=== PATIENT | female | born 1945 | race African-American/Black ===

== ENCOUNTER 2017-03-20 04:52 | Emergency (ER) | payer BC, OTHER ==
[~2017-03-20] VITALS: Ht 165.1 cm; Wt 70.0 kg
[~2017-03-20 04:52] MED LIST: ASPI-1160 PO; LEVE500T19 PO
[2017-03-20 06:33] LABS: BASOPHILS % 1.2 % (0.0-2.0); EOSINOPHILS % 12.3 % (0.0-5.0); HEMATOCRIT. 34.5 % (36.0-48.0); HEMOGLOBIN. 11.8 g/dL (12.0-16.0); LYMPHOCYTES % 29.2 % (20.0-50.0); MEAN CORPUSCULAR HEMOGLOBIN 30.6 pg (28.0-32.0); MEAN CORPUSCULAR VOLUME 89.7 fL (81.0-99.0); MONOCYTES % 7.5 % (2.0-8.0); NEUTROPHILS % 49.8 % (40.0-76.0); PLATELET 342 x1000/uL (130-400); RED BLOOD CELL COUNT 3.84 mill/uL (4.2-5.4); RED CELL DISTRIBUTION WIDTH 13.5 % (11.6-14.6)
[2017-03-20 06:38] LABS: CHLORIDE 106 mEq/L (98-107)
[2017-03-20 06:41] LABS: INR 1.1; PROTHROMBIN TIME 11.6 sec
[2017-03-20 06:46] LABS: CARBON DIOXIDE 24 mEq/L (21-32)
[2017-03-20] MEDS ORDERED: NA PHOS,M-B/NA PHOS,DI-BA ENEMA 118ML PR ONE (07:00)
[2017-03-20 07:10] LABS: CLARITY URINE CLEAR (CLEAR); COLOR URINE YELLOW (YELLOW); GLUCOSE URINE NEGATIVE (NEGATIVE); KETONES URINE NEGATIVE (NEGATIVE); LEUKOCYTE ESTERASE URINE NEGATIVE (NEGATIVE); NITRITE URINE NEGATIVE (NEGATIVE); OCCULT BLOOD URINE NEGATIVE (NEGATIVE); PH URINE 7.5 (4.5-8.0); PROTEIN URINE NEGATIVE (NEGATIVE); SPECIFIC GRAVITY URINE 1.014 (1.005-1.030)
[2017-03-20] MEDS ORDERED: LACTULOSE 20G/30ML UDC PO ONE (07:15)
[2017-03-20 10:50] VITALS: BP 121/68
== END 2017-03-20 10:52 | disposition home or self-care (01) ==
LOC: ER 05:09
DX: R10.33 Periumbilical pain (principal); K56.41 Fecal impaction; E11.9 Type 2 diabetes mellitus without complications; I10 Essential (primary) hypertension; Z86.73 Personal history of transient ischemic attack (TIA), and cerebral infarction without residual deficits; Z98.890 Other specified postprocedural states
CPT/HCPCS: 36415; 74176; 80053; 81003; 82962; 83690; 85025; 85610; 99285

== ENCOUNTER 2017-09-05 18:48 | Emergency (ER) | payer BC, OTHER ==
[~2017-09-05] VITALS: Ht 162.6 cm; Wt 60.0 kg
[2017-09-05] MEDS ORDERED: ONDANSETRON HCL 4MG/2ML VIAL IV STA (19:17)
[2017-09-05] MEDS ORDERED: SODIUM CHLORIDE 0.9% 1,000 ML IV ONE (19:17)
[2017-09-05] MEDS ORDERED: KETOROLAC 30MG/ML VIAL IV STA (19:17)
[2017-09-05 20:21] LABS: BASOPHILS % 1.4 % (0.0-2.0); EOSINOPHILS % 8.1 % (0.0-5.0); HEMATOCRIT. 32.1 % (36.0-48.0); HEMOGLOBIN. 11.1 g/dL (12.0-16.0); LYMPHOCYTES % 32.7 % (20.0-50.0); MEAN CORPUSCULAR HEMOGLOBIN 31.9 pg (28.0-32.0); MEAN PLATELET VOLUME 8.2 fl (7.4-10.4); NEUTROPHILS % 48.8 % (40.0-76.0); PLATELET 347 x1000/uL (130-400); RED BLOOD CELL COUNT 3.49 mill/uL (4.2-5.4); RED CELL DISTRIBUTION WIDTH 13.6 % (11.6-14.6)
[2017-09-05 20:22] LABS: INR 1.1; PROTHROMBIN TIME 11.6 sec (9.4-11.6)
[2017-09-05 20:31] LABS: CARBON DIOXIDE 27 mEq/L (21-32); CHLORIDE 109 mEq/L (98-107)
[2017-09-05 20:32] VITALS: BP 133/68
[2017-09-05 22:37] LABS: CLARITY URINE TURBID (CLEAR); COLOR URINE YELLOW (YELLOW); KETONES URINE NEGATIVE (NEGATIVE); LEUKOCYTE ESTERASE URINE 3+ (NEGATIVE); NITRITE URINE NEGATIVE (NEGATIVE); OCCULT BLOOD URINE 1+ (NEGATIVE); PROTEIN URINE NEGATIVE (NEGATIVE); SPECIFIC GRAVITY URINE 1.009 (1.005-1.030)
== END 2017-09-05 22:58 | disposition home or self-care (01) ==
LOC: ER 19:07
DX: K59.09 Other constipation (principal); N30.00 Acute cystitis without hematuria; I10 Essential (primary) hypertension; E11.9 Type 2 diabetes mellitus without complications; Z86.73 Personal history of transient ischemic attack (TIA), and cerebral infarction without residual deficits; Z79.82 Long term (current) use of aspirin
CPT/HCPCS: 36415; 74176; 80053; 81001; 85025; 85610; 96361; 96374; 96375; 99285; J1885; J2405; J7030

== ENCOUNTER 2019-08-28 02:06 | Emergency (ER) | payer MEDICAID, OTHER ==
[~2019-08-28] VITALS: Ht 165.1 cm; Wt 75.0 kg
[~2019-08-28 02:06] MED LIST changes: +ATOR20TA65 PO; +CLOP75TA33 PO; +FOLI0.8C PO; +PHEN100C12 PO
[2019-08-28] MEDS ORDERED: SODIUM CHLORIDE 0.9% 1,000 ML IV ONE (02:48)
[2019-08-28] MEDS ORDERED: LORAZEPAM 2MG/ML CPJ IV ONE (03:00)
[2019-08-28 03:13] LABS: BASOPHILS % 0.3 % (0.0-2.0); EOSINOPHILS % 7.2 % (0.0-5.0); HEMATOCRIT. 34.7 % (36.0-48.0); HEMOGLOBIN. 11.6 g/dL (12.0-16.0); LYMPHOCYTES % 37.8 % (20.0-50.0); MEAN CORPUSCULAR VOLUME 95.3 fL (81.0-99.0); MEAN PLATELET VOLUME 9.2 fl (7.4-10.4); MONOCYTES % 11.5 % (2.0-8.0); NEUTROPHILS % 43.2 % (40.0-76.0); PLATELET 263 x1000/uL (130-400); RED BLOOD CELL COUNT 3.64 mill/uL (4.2-5.4); RED CELL DISTRIBUTION WIDTH 13.4 % (11.6-14.6)
[2019-08-28 03:21] LABS: CHLORIDE 113 mEq/L (98-107)
[2019-08-28 03:25] LABS: ETHANOL BLOOD < 10 mg/dL
[2019-08-28 03:26] LABS: INR 1.2
[2019-08-28 03:33] LABS: CARBAMAZEPINE < 0.5 ug/mL (4-12); PHENOBARBITAL < 2.1 ug/mL (15.0-40.0); VALPROIC ACID < 3.0 ug/mL (50-100)
[2019-08-28 05:10] LABS: CLARITY URINE CLOUDY (CLEAR); COLOR URINE YELLOW (YELLOW); KETONES URINE NEGATIVE (NEGATIVE); LEUKOCYTE ESTERASE URINE 1+ (NEGATIVE); NITRITE URINE NEGATIVE (NEGATIVE); OCCULT BLOOD URINE NEGATIVE (NEGATIVE); PROTEIN URINE NEGATIVE (NEGATIVE); SPECIFIC GRAVITY URINE 1.019 (1.005-1.030); UROBILINOGEN URINE 0.2 E.U./dL (0.2-1.0)
[2019-08-28] MEDS ORDERED: LEVETIRACETAM 500MG PREMIX 100 ML IV ONE (05:15)
[2019-08-28 05:18] LABS: *AMPHETAMINES SCREEN URINE NEGATIVE (NEGATIVE); *BARBITURATES SCREEN URINE NEGATIVE (NEGATIVE); *BENZODIAZEPINES SCREEN URINE NEGATIVE (NEGATIVE); *COCAINE SCREEN URINE NEGATIVE (NEGATIVE)
[2019-08-28 05:19] LABS: CANNABINOID URINE SCREEN NEGATIVE (NEGATIVE); METHADONE URINE SCREEN NEGATIVE (NEGATIVE); OPIATES URINE SCREEN NEGATIVE (NEGATIVE); PHENCYCLIDINE URINE SCREEN NEGATIVE (NEGATIVE)
[2019-08-28] MEDS ORDERED: CEFTRIAXONE 1 G PREMIX 50 ML IV ONE (05:45)
[2019-08-28 07:29] VITALS: BP 145/56
== END 2019-08-28 07:29 | disposition short-term general hospital (02) ==
LOC: ER 02:06 → CANBEDREQ 07:37
DX: R56.9 Unspecified convulsions (principal); N39.0 Urinary tract infection, site not specified; D64.9 Anemia, unspecified; R45.1 Restlessness and agitation; R53.83 Other fatigue; E11.9 Type 2 diabetes mellitus without complications; I10 Essential (primary) hypertension; Z86.73 Personal history of transient ischemic attack (TIA), and cerebral infarction without residual deficits; Z79.899 Other long term (current) drug therapy; Z79.82 Long term (current) use of aspirin
CPT/HCPCS: 36415; 70450; 71045; 80053; 80156; 80165; 80184; 80185; 80305; 80320; 81003; 82962; 84484; 85025; 85610; 87077; 87086; 87186; 93005; 96361; 96365; 96375; 99285; J0696; J1953; J2060; J7030; A4315; G0480

== ENCOUNTER 2020-01-20 12:59 | Emergency (ER) | payer OTHER ==
[~2020-01-20] VITALS: Ht 165.1 cm; Wt 58.0 kg
[2020-01-20] MEDS ORDERED: SODIUM CHLORIDE 0.9% 500 ML IV ONE (13:16)
[2020-01-20 13:55] LABS: BASOPHILS % 1.3 % (0.0-2.0); EOSINOPHILS % 8.7 % (0.0-5.0); HEMOGLOBIN. 11.5 g/dL (12.0-16.0); LYMPHOCYTES % 27.6 % (20.0-50.0); MEAN CORPUSCULAR VOLUME 97.1 fL (81.0-99.0); MEAN PLATELET VOLUME 9.7 fl (7.4-10.4); MONOCYTES % 7.5 % (2.0-8.0); NEUTROPHILS % 54.9 % (40.0-76.0); PLATELET 298 x1000/uL (130-400); RED CELL DISTRIBUTION WIDTH 13.8 % (11.6-14.6)
[2020-01-20 14:00] LABS: CHLORIDE 110 mEq/L (98-107)
[2020-01-20 14:34] LABS: CLARITY URINE CLEAR (CLEAR); COLOR URINE YELLOW (YELLOW); KETONES URINE NEGATIVE (NEGATIVE); LEUKOCYTE ESTERASE URINE 2+ (NEGATIVE); NITRITE URINE NEGATIVE (NEGATIVE); OCCULT BLOOD URINE NEGATIVE (NEGATIVE); PH URINE 6.5 (4.5-8.0); PROTEIN URINE NEGATIVE (NEGATIVE); SPECIFIC GRAVITY URINE 1.017 (1.005-1.030); UROBILINOGEN URINE 0.2 E.U./dL (0.2-1.0)
[2020-01-20] MEDS ORDERED: NA PHOS,M-B/NA PHOS,DI-BA ENEMA 118ML PR ONE (15:00)
[2020-01-20] MEDS ORDERED: KETOROLAC 15MG/ML VIAL IV ONE (17:15)
[2020-01-20 19:46] VITALS: BP 164/78
== END 2020-01-20 19:48 | disposition home or self-care (01) ==
LOC: ER 12:59
DX: R10.32 Left lower quadrant pain (principal); K59.00 Constipation, unspecified; D64.9 Anemia, unspecified; E11.9 Type 2 diabetes mellitus without complications; I10 Essential (primary) hypertension; Z86.73 Personal history of transient ischemic attack (TIA), and cerebral infarction without residual deficits; Z79.82 Long term (current) use of aspirin; Z79.899 Other long term (current) drug therapy
CPT/HCPCS: 36415; 74176; 80053; 81003; 83690; 85025; 99285; J1885; J7030

== ENCOUNTER 2020-05-29 00:29 | Emergency (ER) | payer OTHER ==
[~2020-05-29] VITALS: Ht 162.6 cm; Wt 130.0 kg
[2020-05-29] MEDS ORDERED: SODIUM CHLORIDE 0.9% 500 ML IV ONE (01:00)
[2020-05-29 01:46] LABS: BASOPHILS % 1.1 % (0.0-2.0); EOSINOPHILS % 9.6 % (0.0-5.0); HEMATOCRIT. 31.9 % (36.0-48.0); HEMOGLOBIN. 10.8 g/dL (12.0-16.0); LYMPHOCYTES % 29.3 % (20.0-50.0); MEAN CORPUSCULAR HEMOGLOBIN 32.9 pg (28.0-32.0); MONOCYTES % 9.9 % (2.0-8.0); NEUTROPHILS % 50.1 % (40.0-76.0); PLATELET 266 x1000/uL (130-400); RED BLOOD CELL COUNT 3.28 mill/uL (4.2-5.4); RED CELL DISTRIBUTION WIDTH 13.9 % (11.6-14.6)
[2020-05-29 01:53] LABS: CHLORIDE 111 mEq/L (98-107)
[2020-05-29 01:55] LABS: INR 1.1; PROTHROMBIN TIME 11.7 sec (9.6-11.0)
[2020-05-29 02:10] LABS: CLARITY URINE CLEAR (CLEAR); COLOR URINE YELLOW (YELLOW); KETONES URINE NEGATIVE (NEGATIVE); LEUKOCYTE ESTERASE URINE NEGATIVE (NEGATIVE); NITRITE URINE NEGATIVE (NEGATIVE); OCCULT BLOOD URINE NEGATIVE (NEGATIVE); PROTEIN URINE NEGATIVE (NEGATIVE); SPECIFIC GRAVITY URINE 1.019 (1.005-1.030)
[2020-05-29] MEDS ORDERED: ACETAMINOPHEN 325MG TABLET PO ONE (02:30)
[2020-05-29] MEDS ORDERED: KETOROLAC 15MG/ML VIAL IV ONE (03:15)
[2020-05-29] MEDS ORDERED: OLANZAPINE 10 MG/VIAL IM ONE (04:45)
[2020-05-29 10:59] VITALS: BP 149/80
== END 2020-05-29 11:37 | disposition home or self-care (01) ==
LOC: ER 00:29
DX: M54.5 Low back pain (principal); E11.9 Type 2 diabetes mellitus without complications; I10 Essential (primary) hypertension; Z79.899 Other long term (current) drug therapy; Z86.73 Personal history of transient ischemic attack (TIA), and cerebral infarction without residual deficits; Z79.82 Long term (current) use of aspirin
CPT/HCPCS: 36415; 80053; 81003; 82962; 83690; 85025; 85610; 93005; 96361; 96372; 96374; 99285; J1885; J3490; J7040